=== PATIENT | female | born 1985 | race Two or more races ===

== ENCOUNTER 2020-06-05 01:36 | Emergency (ER) | payer BC, OTHER ==
[~2020-06-05] VITALS: Ht 170.2 cm; Wt 82.6 kg
--- NOTE | 2020-06-05 01:50 | NUR ---
TADEO 79/ [employer] FOR ETOH. PT PASSED OUT IN UBER. PT DENIES DRUG OR ALCOHOL USE. ABKE TO ANSWER QUESTIONS BUT SLOW IN RESPOSE. PT WAS PLACED ON A MONITOR,
[2020-06-05] MEDS ORDERED: IV NS 0.9% 1,000 ML IV ONE ×2 (02:00)
--- NOTE | 2020-06-05 02:02 | NUR ---
Pressure and 4x4 applied to site. No bleeding noted.
--- NOTE | 2020-06-05 02:02 | NUR ---
PATIENT REMOVED HER OWN IV LINE.
--- NOTE | 2020-06-05 02:06 | NUR ---
NEW IV ACCESS PLACED ON THE LEFT AC 20G
--- NOTE | 2020-06-05 05:47 | NUR ---
PATIENT IS AMBULATORY WITH A STEADY GAIT. AAOX4. STATES THAT SHE WILL USE AN UBER TO DRIVE HER BACK HOME.
[2020-06-05 05:48] VITALS: BP 141/76
--- NOTE | 2020-06-05 05:48 | NUR ---
Patient discharged to home in stable condition. Written and verbal after care instructions given. Patient verbalizes understanding of instruction.
== END 2020-06-05 05:49 | disposition home or self-care (01) ==
LOC: ER 01:38
DX: F10.129 Alcohol abuse with intoxication, unspecified (principal); R00.0 Tachycardia, unspecified; Y90.9 Presence of alcohol in blood, level not specified